=== PATIENT | male | born 1965 | race Caucasian/White ===

== ENCOUNTER 2021-04-02 12:20 | Inpatient (IN) | payer OTHER ==
[2021-04-02 13:12] VITALS: BMI 24.1
[2021-04-02] MEDS ORDERED: IBUPROFEN 400 MG TABLET (FP) PO PRN (13:45)
[2021-04-02] MEDS ORDERED: ACETAMINOPHEN 325 MG TABLET (FP) PO PRN ×2 (13:45)
[2021-04-02] MEDS ORDERED: METHOCARBAMOL 500 MG TABLET PO PRN (13:45)
[2021-04-02] MEDS ORDERED: MAGNESIUM HYDROX 2400MG/30ML ORAL SUSPENSION 30 ML CUP PO PRN (13:45)
[2021-04-02] MEDS ORDERED: BISMUTH SUBSALICYLATE 524 MG/30 ML PO PRN (13:45)
[2021-04-02] MEDS ORDERED: NICOTINE POLACRILEX 2 MG GUM BUC PRN (13:45)
[2021-04-02] MEDS ORDERED: ONDANSETRON *ODT* 4 MG TABLET SL PRN (13:45)
[2021-04-02] MEDS ORDERED: MENTHOL/PHENOL 1 EACH UD MM PRN (13:45)
[2021-04-02] MEDS ORDERED: MAGNESIUM CITRATE 300 ML BOTTLE PO PRN (13:45)
[2021-04-02] MEDS ORDERED: MAG HYDROX/AL HYDROX/SIMETH 30 ML UNIT-DOSE CUP PO PRN (13:45)
[2021-04-02 15:42] LABS: HEMATOCRIT 45.6 % (35.4-49); HEMOGLOBIN 15.2 GM/dL (11.7-16.9); MCH 29.6 pg (25.7-33.7); MCHC 33.4 g/dl (32.0-35.9); MEAN CELL VOLUME 88.6 fl (80-96); MEAN PLT VOLUME 9.3 fl (7.5-11.1); PLATELET COUNT 149 10^3/uL (134-434); RBC 5.15 M/mm3 (4.00-5.60); RDW 13.5 % (11.9-15.9); WHITE BLOOD COUNT 5.4 K/mm3 (4.0-10.0)
[2021-04-02] MEDS: hydrOXYzine PAMOATE 25 MG CAPSULE (FP) PO SCH ×3 (15:42→22:24)
[2021-04-02] MEDS: NICOTINE 14 MG/24 HOURS TOPICAL PATCH TD SCH (15:44)
[2021-04-02 16:10] LABS: CALCIUM 8.7 mg/dL (8.5-10.1)
[2021-04-02 16:11] LABS: BLOOD UREA NITROGEN 11.1 mg/dL (7-18)
[2021-04-02 16:12] LABS: ALBUMIN 4.4 g/dl (3.4-5.0)
[2021-04-02 16:15] LABS: BILIRUBIN,TOTAL 0.5 mg/dL (0.2-1)
[2021-04-02 16:16] LABS: TOT PROT 7.6 g/dl (6.4-8.2)
[2021-04-02] MEDS: THIAMINE HCL 100 MG TABLET (FP) PO SCH (22:24)
[2021-04-02] MEDS: MELATONIN 5 MG TABLETS PO SCH (22:25)
[2021-04-03] MEDS: hydrOXYzine PAMOATE 25 MG CAPSULE (FP) PO SCH ×5 (06:10→22:07)
[2021-04-03] MEDS ORDERED: diazePAM 5 MG TABLET PO PRN (09:41)
[2021-04-03] MEDS ORDERED: methaDONE HCL 10 MG TABLET (FOR DETOX USE ONLY) ONE (10:47)
[2021-04-03] MEDS: diazePAM 5 MG TABLET PO SCH ×3 (10:48→22:05)
[2021-04-03] MEDS: PRENATAL VITAMINS W/ FOLIC ACID TABLET (FP) PO SCH (10:49)
[2021-04-03] MEDS: NICOTINE 14 MG/24 HOURS TOPICAL PATCH TD SCH (10:50)
[2021-04-03] MEDS: MELATONIN 5 MG TABLETS PO SCH (22:06)
[2021-04-03] MEDS: THIAMINE HCL 100 MG TABLET (FP) PO SCH (22:06)
[2021-04-04] MEDS: hydrOXYzine PAMOATE 25 MG CAPSULE (FP) PO SCH ×2 (05:55→10:25)
[2021-04-04] MEDS ORDERED: diazePAM 5 MG TABLET PO SCH (06:00)
[2021-04-04 06:42] VITALS: BP 157/87; PULSE 66; TEMP 98.2
[2021-04-04] MEDS ORDERED: methaDONE HCL 10 MG TABLET (FOR DETOX USE ONLY) PO ONE (10:00)
[2021-04-04] MEDS: PRENATAL VITAMINS W/ FOLIC ACID TABLET (FP) PO SCH (10:25)
[2021-04-04] MEDS: NICOTINE 14 MG/24 HOURS TOPICAL PATCH TD SCH (10:26)
[2021-04-05] MEDS ORDERED: diazePAM 5 MG TABLET PO SCH (06:00)
[2021-04-06] MEDS ORDERED: diazePAM 5 MG TABLET PO ONE (06:00)
[2021-04-06] MEDS ORDERED: methaDONE HCL 10 MG TABLET (FOR DETOX USE ONLY) PO ONE (10:00)
== END 2021-04-04 12:50 | disposition left against medical advice (07) | DRG 770 ==
LOC: YASAS 12:20 → Y3N 14:56
PROVIDERS: ADMIT Allergy & Immunology; ATTEND Allergy & Immunology
PROC: HZ2ZZZZ Detoxification Services for Substance Abuse Treatment (ICD-10-PCS; principal; 2021-04-02)
DX: F10.230 Alcohol dependence with withdrawal, uncomplicated (principal); F11.23 Opioid dependence with withdrawal; F13.20 Sedative, hypnotic or anxiolytic dependence, uncomplicated; F17.210 Nicotine dependence, cigarettes, uncomplicated; Z87.19 Personal history of other diseases of the digestive system; Z86.2 Personal history of diseases of the blood and blood-forming organs and certain disorders involving the immune mechanism; Z90.49 Acquired absence of other specified parts of digestive tract
CPT/HCPCS: 36415; 80053; 85027; 86780; 93005; 93010; C9803; U0003; U0005